=== PATIENT | male | born 1980 | race Caucasian/White ===

== ENCOUNTER 2023-06-11 22:32 | Emergency (ER) | payer OTHER ==
[2023-06-11 22:53] VITALS: BP 121/77; PULSE 90; RESP 18; TEMP 98.7; BMI 29.8
[2023-06-11] MEDS ORDERED: ACETAMINOPHEN 500 MG TABLET (FP) PO ONE (23:52)
[2023-06-12] MEDS ORDERED: ACETAMINOPHEN 325 MG TABLET (FP) ONE (00:07)
== END 2023-06-12 01:12 | disposition home or self-care (01) ==
LOC: JER 22:32
DX: M79.674 Pain in right toe(s) (principal); S90.931A Unspecified superficial injury of right great toe, initial encounter; L60.0 Ingrowing nail; W20.8XXA Other cause of strike by thrown, projected or falling object, initial encounter
CPT/HCPCS: 73630-TC-RT-FY; 99283-25